=== PATIENT | male | born 1960 | race Caucasian/White ===

== ENCOUNTER 2021-10-06 00:40 | Day surgery (SDC) | payer BC, SELFPAY ==
[2021-09-25 12:12] VITALS: BMI 28.8
[2021-10-06 12:04] VITALS: BP 147/73; PULSE 72; RESP 18; TEMP 36.3; O2SAT 98; BMI 28.0
[2021-10-06] MEDS: LACTATED RINGERS 1,000 ML 150 ML IV CONT (12:21)
--- NOTE | 2021-10-06 12:35 | P.PNAN_ITS ---
Anes - Initial Pre Proc Eval Procedure: Operation Date: 10/06/21 13:30 Proposed Procedures p Screening Colonoscopy - Ariel Bay MD Date/Time: 10/06/21 12:35 Surgeon: Ariel Bay MD Pre Op Diagnosis: neoplasm screening Patient Data Age: 61 Gender: M Height: 1.83 m Weight: 93.7 kg Last Vital Signs Temp 97.4 F L 10/06/21 12:04 Pulse 72 10/06/21 12:04 Resp 18 10/06/21 12:04 BP 147/73 H 10/06/21 12:04 Pulse Ox 98 10/06/21 12:04 O2 Del Method Room Air 10/06/21 12:04 Allergies Allergy/AdvReac Type Severity Reaction Status Date / Time No Known Allergies Allergy Verified 10/06/21 12:10 Home Medications Medication Instructions Recorded Confirmed Type amlodipine 10 mg tablet 10 mg PO DAILY #30 tabs 08/24/21 10/06/21 Rx irbesartan 150 1 tablet PO DAILY #30 tabs 08/24/21 10/06/21 Rx mg-hydrochlorothiazide 12.5 mg tablet atorvastatin 20 mg tablet 20 mg PO DAILY #90 tabs 08/28/21 10/06/21 Rx omeprazole 20 mg capsule,delayed 20 mg PO DAILY #90 caps 08/28/21 10/06/21 Rx release Patient hx anesthesia problems: none Family hx anesthesia problems: none Results Review: All pre-operative results and documents have been reviewed as part of the pre- operative evaluation. [facility] Past Medical History Medical History Benign essential HTN Hyperlipidemia MERLYN on CPAP Rosacea Family History Family History Father Hypertension Cerebrovascular accident Heart disease Social History Social History (Updated 08/24/21 @ 16:10 by Johana Moreno) Social History: Smoking packs per day: 1 Smoking cigarettes per day: 20.0 Years smoked: 30 Smoking pack-years: 30.00 Smoking status: Former smoker Tobacco type: cigarettes Second hand tobacco smoke exposure: No Smoking end date: 02/11/10 Alcohol intake: current Alcohol use details: occasional use Substance use: never Substance use type: does not use Living arrangements: with family Additional occupation/education comments: municipal worker Gender identity (if verbalized by the patient): Male Sexual Orientation (if Verbalized by the Patient): Straight or Heterosexual Spiritual care concerns: No Agree to blood products: Yes Anes - Eval Final PreProcedure Day of Procedure 10/06/21 12:35 Patient weight: overweight Airway: Mallampati scale class III ASA classification: II Anesthesia type and monitoring: general GIVS and standard monitoring Results Review: All pre-operative results and documents have been reviewed as part of the pre- operative evaluation. Informed Consent: The patient's anesthetic plan and its attendant risks and benefits were discussed with the patient/family/POA. Questions were solicited and answers provided to the satisfaction of the patient/family/POA.
--- NOTE | 2021-10-06 12:56 | PM.HPGS ---
History of Present Illness History of Present Illness Consent: Risks, benefits, and alternatives have been discussed and questions answered. Patient agrees to proceed with procedure. Chief complaint: neoplasm screening Narrative: Rock Perez is a 61 year old male here for first screening colonoscopy Review of Systems Constitutional: Constitutional: Denies headache(s) and Denies weakness Eyes: Eyes: Denies blurry vision ENT: Reports Normal hearing present, Denies headache(s) and Denies neck pain Cardiovascular: Cardiovascular: Denies chest pain and Denies dyspnea Respiratory: Respiratory: Denies dyspnea Gastrointestinal: Gastrointestinal: Reports no additional gastrointestinal complaints Genitourinary: Genitourinary: Denies dysuria Musculoskeletal: Musculoskeletal: Denies neck pain Integumentary/Breasts: Skin/Breast: Denies dry skin Neurologic: Reports Normal hearing present, Denies headache(s) and Denies weakness Psychiatric: Psychiatric: Denies anxiety Endocrine: Endocrine: Denies change in body appearance Hematologic/Lymphatic: Hematologic/Lymphatic: Denies easy bleeding Allergic/Immunologic: Allergic/Immunologic: Denies urticaria PMFSH Past Medical History Medical History Benign essential HTN Hyperlipidemia MERLYN on CPAP Rosacea Family History Family History Father Hypertension Cerebrovascular accident Heart disease Social History Social History (Updated 08/24/21 @ 16:10 by Johana Moreno) Social History: Smoking packs per day: 1 Smoking cigarettes per day: 20.0 Years smoked: 30 Smoking pack-years: 30.00 Smoking status: Former smoker Tobacco type: cigarettes Second hand tobacco smoke exposure: No Smoking end date: 02/11/10 Alcohol intake: current Alcohol use details: occasional use Substance use: never Substance use type: does not use Living arrangements: with family Additional occupation/education comments: municipal worker Gender identity (if verbalized by the patient): Male Sexual Orientation (if Verbalized by the Patient): Straight or Heterosexual Spiritual care concerns: No Agree to blood products: Yes Meds Home Medications and Allergies Home Medications Medication Instructions Recorded Confirmed Type amlodipine 10 mg tablet 10 mg PO DAILY #30 tabs 08/24/21 10/06/21 Rx irbesartan 150 1 tablet PO DAILY #30 tabs 07/14/22 08/26/22 Rx mg-hydrochlorothiazide 12.5 mg tablet atorvastatin 20 mg tablet 20 mg PO DAILY #90 tabs 08/28/21 10/06/21 Rx omeprazole 20 mg capsule,delayed 20 mg PO DAILY #90 caps 08/28/21 10/06/21 Rx release Allergies Allergy/AdvReac Type Severity Reaction Status Date / Time No Known Allergies Allergy Verified 10/06/21 12:10 Vital Signs Vital Signs - 24 hr 10/06/21 12:04 Temperature 97.4 F L Pulse Rate 72 Respiratory Rate 18 Blood Pressure 147/73 H Pulse Oximetry 98 Oxygen Delivery Room Air Exam Const: General: comfortable and no acute distress HENMT: General nose exam: Normal nares present Eyes: General: appearance normal, both eyes and all related structures Neck: Neck: no JVD Resp: Auscultation: clear to auscultation bilaterally Cardio: Rate: regular rate Rhythm: regular rhythm GI: Inspection: non-distended GI Palp: Yes Soft to palpation Skin: General skin exam: normal color Neuro: General: gait normal Speech: normal speech Extrem: General: normal to inspection Psych: Mental Status: mental status grossly normal Assessment and Plan Assessment and plan (1) Colon cancer screening: Code(s): Z12.11 - Encounter for screening for malignant neoplasm of colon Status: Acute Assessment and Plan: colonoscopy
[2021-10-06 13:20] VITALS: BP 130/78; PULSE 74; RESP 22; O2SAT 99
[2021-10-06 13:30] VITALS: BP 122/75; PULSE 71; RESP 20; O2SAT 97
[2021-10-06 13:40] VITALS: BP 139/79; PULSE 66; RESP 17; O2SAT 99
== END 2021-10-06 13:51 | disposition home or self-care (01) ==
PROVIDERS: PCP Family Medicine; Visit Provider Internal Medicine Gastroenterology
PROC: 0DJD8ZZ Inspection of Lower Intestinal Tract, Via Natural or Artificial Opening Endoscopic (ICD-10-PCS; CPT 45378; principal; 2021-10-06 13:30)
DX: Z12.11 Encounter for screening for malignant neoplasm of colon (principal); D12.2 Benign neoplasm of ascending colon; K64.8 Other hemorrhoids; G47.33 Obstructive sleep apnea (adult) (pediatric); I10 Essential (primary) hypertension; L71.9 Rosacea, unspecified; E78.5 Hyperlipidemia, unspecified; Z87.891 Personal history of nicotine dependence
CPT/HCPCS: 45385; 88305; J7120

== ENCOUNTER 2023-03-13 08:18 | Outpatient (CLI) | payer BC, SELFPAY ==
[2023-03-13 09:31] LABS: Influenza A QL RT-PCR Negative (Negative); Influenza B QL RT-PCR Negative (Negative); RSV RNA, RT-PCR Positive (Negative); SARS-CoV-2 RNA PCR Negative (Negative)
== END 2023-03-13 08:19 | disposition home or self-care (01) ==
LOC: ANHLAB 08:20
PROVIDERS: PCP Family Medicine; Visit Provider Physician Assistant
DX: J02.9 Acute pharyngitis, unspecified (principal); Z20.822 Contact with and (suspected) exposure to COVID-19
CPT/HCPCS: 87637